=== PATIENT | male | born 1975 | race Hispanic/Latino ===

== ENCOUNTER 2024-10-04 21:36 | Emergency (ER) | payer OTHER, SELFPAY ==
[2024-10-04 22:31] LABS: #Basophils 0.05 10x3/uL (0.0-0.2); #Eosinophils 0.33 10x3/uL (0.0-0.5); %Basophils 0.6 % (0.0-2.0); %Eosinophils 4.3 % (0.0-6.0); %Lymphocytes 24.7 % (18.0-47.0); Hematocrit 35.5 % (38.8-50.0); Hemoglobin 11.3 g/dL (13.5-17.5); Mean Corpuscular HGB CONC 31.8 g/dL (32.0-36.0); Mean Corpuscular Hemoglobin 24.5 pg (27.0-33.0); Mean Platelet Volume 11.2 fL (7.4-10.4); Platelet Count 126 10x3/uL (150-450); RBC Distribution Width 21.2 % (11.5-14.5); Red Blood Cell (RBC) Count 4.61 10x6/uL (4.32-5.72); White Blood Cell (WBC) Count 7.72 10x3/uL (3.5-10.5)
[2024-10-04 22:48] LABS: ALT (SGPT) 45 U/L (Less than 45); AST (SGOT) 52 U/L (11-34); Alkaline Phosphatase 201 U/L (40-110); Anion Gap 11 mmol/L (10-20); BUN (Urea Nitrogen) 9 mg/dL (8.9-20.6); Calc. Creatinine Clearance 0 mL/min (70-130); Calcium 8.4 mg/dL (7.8-10.44); Carbon Dioxide 18 mmol/L (22-29); Chloride 112 mmol/L (98-107); Estimated GFR 120; Globulin 4.1 g/dL (2.4-3.5); Glucose 89 mg/dL (70-105); Potassium 3.1 mmol/L (3.5-5.1); Protein, Total 7.1 g/dL (6.0-8.3); Sodium 138 mmol/L (136-145)
[2024-10-04] MEDS ORDERED: Acetaminophen 500 MG TAB ONE (23:23)
[2024-10-05] MEDS ORDERED: Potassium Chloride 20 MEQ TAB ONE (00:06)
== END 2024-10-05 00:26 ==
LOC: EDSEX 21:36 → CSHERS 21:36 → EEVIPCON 21:36 → CSHERS 10-05 00:26
DX: L03.115 Cellulitis of right lower limb (principal); E87.6 Hypokalemia
CPT/HCPCS: 80053; 85025; 85379